=== PATIENT | female | born 1970 | race Caucasian/White ===

== ENCOUNTER 2016-12-21 08:52 | Outpatient (CLI) | payer MEDICARE, OTHER ==
[2014-06-01 05:53] VITALS: BMI 44.3
[~2016-12-21 08:52] MED LIST: ADRENAL SUPPORT OR; ARMOUR THYROID30 MG PO; ARMOUR THYROID60 M1 PO; BI EST TD; BIOTIN5 MG PO; CALTRATE 600 M600 M1 PO; COREG25 MG PO; CYMBALTA60 MG PO; DEMEROL50 MG PO; DHEA25 M1 PO; FIBER-TABS625 MG PO; FLOVENT DISKU100 MCG INH; IBUPROFEN200 MG PO; MELATONIN 3 MG1 TAB PO; MULTIPLE VITAMI1 TA1 PO; NUCYNTA75 MG PO; PALGIC; PHENERGAN25 M1 PO; PHOSPHATE OR; PRILOSEC20 MG PO; PROGESTERONE TD; PROMETRIUM100 MG PO; VALIUM5 MG PO; VENTOLIN HFA18 GM INH; ZANAFLEX4 MG PO; ZETONNA NASAL; [UNRECOGNIZED DRUG - OTHER] OR; [UNRECOGNIZED DRUG - OTHER] TD
== END 2016-12-21 11:28 ==
LOC: D.MAMMO 08:52
DX: N63 Unspecified lump in breast (principal); M79.601 Pain in right arm

== ENCOUNTER 2017-03-26 17:59 | Emergency (ER) | payer MEDICARE, OTHER ==
[2014-06-01 05:53] VITALS: BMI 44.3
== END 2017-03-26 23:10 | disposition home or self-care (01) ==
LOC: D.ER 17:59
DX: N39.0 Urinary tract infection, site not specified (principal); J45.909 Unspecified asthma, uncomplicated; I10 Essential (primary) hypertension; K21.9 Gastro-esophageal reflux disease without esophagitis; E03.9 Hypothyroidism, unspecified

== ENCOUNTER 2017-03-30 16:40 | Emergency (ER) | payer MEDICARE, OTHER ==
[2014-06-01 05:53] VITALS: BMI 44.3
[2017-03-30 17:54] LABS: ANION GAP 14.2 mmol/L (8-16); BILIRUBIN - TOTAL 0.46 mg/dL (0.2-1.3); CALCIUM 9.2 mg/dL (8.5-10.1); CARBON DIOXIDE 23.7 mmol/L (21.0-32.0); CREATININE - SERUM 0.9 mg/dL (0.6-1.3); POTASSIUM - SERUM 3.9 mmol/L (3.5-5.1); PROTEIN - SERUM 7.3 g/dL (6.4-8.2)
[2017-03-30 19:00] LABS: APPEARANCE CLEAR (CLEAR); BILIRUBIN NEGATIVE (NEGATIVE); COLOR YELLOW (YELLOW); GLUCOSE NEGATIVE (NEGATIVE); KETONE NEGATIVE (NEGATIVE); LEUKOCYTE ESTERASE NEGATIVE (NEGATIVE); NITRITE NEGATIVE (NEGATIVE); PROTEIN NEGATIVE (NEGATIVE); UROBILINOGEN NORMAL (NORMAL)
== END 2017-03-30 21:15 | disposition home or self-care (01) ==
LOC: D.ER 16:40
PROVIDERS: Emergency Medicine
DX: R51 Headache (principal); J45.909 Unspecified asthma, uncomplicated; K21.9 Gastro-esophageal reflux disease without esophagitis; I10 Essential (primary) hypertension

== ENCOUNTER → 2017-08-19 09:05 | Outpatient (CLI) | payer MEDICARE ==
[2014-06-01 05:53] VITALS: BMI 44.3
== END | disposition home or self-care (01) ==
LOC: D.MRI 09:00
DX: M54.12 Radiculopathy, cervical region (principal)

== ENCOUNTER → 2017-09-14 13:36 | Outpatient (CLI) | payer MEDICARE ==
[2014-06-01 05:53] VITALS: BMI 44.3
== END | disposition home or self-care (01) ==
LOC: D.MRI 08-24 09:00
DX: R40.4 Transient alteration of awareness (principal); R56.1 Post traumatic seizures

== ENCOUNTER → 2018-05-03 18:21 | Outpatient (CLI) | payer MEDICARE ==
[2014-06-01 05:53] VITALS: BMI 44.3
== END | disposition home or self-care (01) ==
LOC: D.MAMMO 04-19 15:15
DX: Z12.31 Encounter for screening mammogram for malignant neoplasm of breast (principal)